=== PATIENT | female | born 1965 | race Caucasian/White ===

== ENCOUNTER 2021-06-29 14:57 | Inpatient (IN) | payer BC ==
[~2021-06-29] VITALS: Ht 167.6 cm; Wt 63.5 kg
[2021-06-29] MEDS ORDERED: MORPHINE SULFATE 4 MG/ML CPJ (NOT FOR IM USE) IV STA (15:01)
[2021-06-29] MEDS ORDERED: ONDANSETRON HCL 4MG/2ML INJ IV STA (15:01)
[2021-06-29] MEDS ORDERED: SODIUM CHLORIDE 0.9% 1,000 ML IV ONE (15:15)
[2021-06-29 15:42] LABS: CHLORIDE 105 mEq/L (98-107)
[2021-06-29 15:44] LABS: BASOPHILS % 0.6 % (0.0-2.0); EOSINOPHILS % 0.3 % (0.0-5.0); HEMATOCRIT. 41.5 % (36.0-48.0); HEMOGLOBIN. 14.1 g/dL (12.0-16.0); LYMPHOCYTES % 18.6 % (20.0-50.0); MEAN CORPUSCULAR HEMOGLOBIN 29.7 pg (28.0-32.0); MEAN CORPUSCULAR VOLUME 87.7 fL (81.0-99.0); MONOCYTES % 5.6 % (2.0-8.0); NEUTROPHILS % 74.9 % (40.0-76.0); PLATELET 226 x1000/uL (130-400); RED BLOOD CELL COUNT 4.73 mill/uL (4.2-5.4); RED CELL DISTRIBUTION WIDTH 13.4 % (11.6-14.6)
[2021-06-29 15:45] LABS: ETHANOL BLOOD < 10 mg/dL
[2021-06-29 15:49] LABS: CREATINE KINASE 472 IU/L (26-192)
[2021-06-29] MEDS ORDERED: FAMOTIDINE 20MG/2ML VIAL IV ONE (16:00)
[2021-06-29 16:09] LABS: INR 0.9
[2021-06-29 16:16] LABS: AMYLASE 50 IU/L (25-115)
[2021-06-29] MEDS ORDERED: MAGNESIUM/ALUMINUM HYDROXIDE/SIMETHICONE 30ML UDC PO PRN (18:45)
[2021-06-29] MEDS ORDERED: GUAIFENESIN 200MG/10ML SUGAR FREE UDC PO PRN (18:45)
[2021-06-29] MEDS ORDERED: IPRATROPIUM/ALBUTEROL 0.5-3(2.5)MG/3ML NEB NEB PRN (18:45)
[2021-06-29] MEDS ORDERED: NITROGLYCERIN 0.4MG TABLET SL SL PRN (18:45)
[2021-06-29] MEDS ORDERED: ACETAMINOPHEN 325MG TABLET PO PRN (18:45)
[2021-06-29] MEDS ORDERED: CLONIDINE 0.1MG TABLET PO PRN (18:45)
[2021-06-29] MEDS ORDERED: DOCUSATE SODIUM 100MG CAPSULE PO PRN (18:45)
[2021-06-29 19:14] LABS: CLARITY URINE CLEAR (CLEAR); COLOR URINE YELLOW (YELLOW); KETONES URINE 1+ (NEGATIVE); LEUKOCYTE ESTERASE URINE NEGATIVE (NEGATIVE); NITRITE URINE POSITIVE (NEGATIVE); OCCULT BLOOD URINE NEGATIVE (NEGATIVE); PROTEIN URINE NEGATIVE (NEGATIVE); SPECIFIC GRAVITY URINE 1.031 (1.005-1.030); UROBILINOGEN URINE 0.2 E.U./dL (0.2-1.0)
[2021-06-29] MEDS: ACETAMINOPHEN 325MG TABLET PO PRN (19:16)
[2021-06-29] MEDS: DEXT 5%/LACTATED RINGERS 1,000 ML IV SCH (19:21)
[2021-06-29 19:28] LABS: *AMPHETAMINES SCREEN URINE NEGATIVE (NEGATIVE); *BARBITURATES SCREEN URINE NEGATIVE (NEGATIVE); CANNABINOID URINE SCREEN NEGATIVE (NEGATIVE); METHADONE URINE SCREEN NEGATIVE (NEGATIVE)
[2021-06-29 19:29] LABS: *BENZODIAZEPINES SCREEN URINE NEGATIVE (NEGATIVE); *COCAINE SCREEN URINE NEGATIVE (NEGATIVE); OPIATES URINE SCREEN PRESUMTIVE POSITIVE (NEGATIVE); PHENCYCLIDINE URINE SCREEN NEGATIVE (NEGATIVE)
[2021-06-29] MEDS: ENOXAPARIN 40MG/0.4ML SYR SUBCUT SCH (20:08)
[2021-06-29 20:09] LABS: T4 FREE 1.33 ng/dL (0.76-1.46)
[2021-06-29 20:38] LABS: VITAMIN B12 SERUM 682 pg/mL (211-911)
[2021-06-29] MEDS: SUCRALFATE 1 G/10 ML UDC PO SCH (20:55)
[2021-06-29] MEDS ORDERED: IOHEXOL-300 100 ML BOTTLE ONE (20:57)
[2021-06-29] MEDS: KETOROLAC 15MG/ML VIAL IV PRN (20:59)
[2021-06-29] MEDS ORDERED: ZOLPIDEM TARTRATE 5MG TABLET PO PRN (21:00)
[2021-06-29 21:07] LABS: FOLIC ACID (FOLATE) SERUM > 20.00 ng/mL (>5.38)
[2021-06-29 23:07] LABS: CREATINE KINASE 286 IU/L (26-192)
[2021-06-29 23:09] LABS: CREATINE KINASE MB FRACTION 4.2 ng/mL (0.5-3.6)
[2021-06-29] MEDS: ONDANSETRON HCL 4MG/2ML INJ IV PRN (23:35)
[2021-06-30 04:50] LABS: BASOPHILS % 0.7 % (0.0-2.0); EOSINOPHILS % 0.3 % (0.0-5.0); HEMATOCRIT. 43.6 % (36.0-48.0); HEMOGLOBIN. 14.2 g/dL (12.0-16.0); LYMPHOCYTES % 22.9 % (20.0-50.0); MEAN CORPUSCULAR HEMOGLOBIN 28.7 pg (28.0-32.0); MEAN CORPUSCULAR VOLUME 88.1 fL (81.0-99.0); MEAN PLATELET VOLUME 8.8 fl (7.4-10.4); MONOCYTES % 9.2 % (2.0-8.0); NEUTROPHILS % 66.9 % (40.0-76.0); PLATELET 232 x1000/uL (130-400); RED BLOOD CELL COUNT 4.95 mill/uL (4.2-5.4); RED CELL DISTRIBUTION WIDTH 13.5 % (11.6-14.6)
[2021-06-30] MEDS: DEXT 5%/LACTATED RINGERS 1,000 ML IV SCH ×2 (04:59→13:41)
[2021-06-30] MEDS: ONDANSETRON HCL 4MG/2ML INJ IV PRN (04:59)
[2021-06-30] MEDS: KETOROLAC 15MG/ML VIAL IV PRN (04:59)
[2021-06-30 05:29] LABS: CHLORIDE 108 mEq/L (98-107)
[2021-06-30 05:41] LABS: CREATINE KINASE 193 IU/L (26-192)
[2021-06-30 05:43] LABS: CREATINE KINASE MB FRACTION 3.4 ng/mL (0.5-3.6)
[2021-06-30] MEDS: SUCRALFATE 1 G/10 ML UDC PO SCH ×4 (08:12→21:17)
[2021-06-30 09:10] VITALS: BP 93/69
[2021-06-30] MEDS: PANTOPRAZOLE SODIUM 40 MG/VIAL IV SCH (10:03)
[2021-06-30 12:00] VITALS: BP 118/72
[2021-06-30] MEDS ORDERED: LACTULOSE 20G/30ML UDC PO NR (14:00)
[2021-06-30 15:52] VITALS: BP 141/79
[2021-06-30 20:00] VITALS: BP 128/79
[2021-06-30] MEDS ORDERED: LACTULOSE 20G/30ML UDC PO PRN (21:00)
[2021-06-30] MEDS ORDERED: ATORVASTATIN CALCIUM 20MG TABLET PO SCH (21:00)
[2021-06-30] MEDS: ACETAMINOPHEN 325MG TABLET PO PRN (21:16)
[2021-06-30] MEDS: ENOXAPARIN 40MG/0.4ML SYR SUBCUT SCH (21:17)
[2021-07-01] VITALS: BP 97/52
[2021-07-01] MEDS: DEXT 5%/LACTATED RINGERS 1,000 ML IV SCH ×2 (01:23→09:10)
[2021-07-01 04:00] VITALS: BP 128/69
[2021-07-01] MEDS: SUCRALFATE 1 G/10 ML UDC PO SCH (06:14)
[2021-07-01] MEDS: ACETAMINOPHEN 325MG TABLET PO PRN (07:47)
[2021-07-01 08:00] VITALS: BP 129/84
[2021-07-01] MEDS: PANTOPRAZOLE SODIUM 40 MG/VIAL IV SCH (09:09)
[2021-07-01 10:32] VITALS: BP 129/84
== END 2021-07-01 12:15 | disposition home or self-care (01) | DRG 389 ==
LOC: ER 14:57 → EDBEDREQ 18:34 → MICUSO 18:41 → EDBEDREQ 19:00 → EDBEDREQTM 19:00 → 8WST 06-30 09:37
PROVIDERS: ADMIT Internal Medicine; ATTEND Internal Medicine
DX: K56.600 Partial intestinal obstruction, unspecified as to cause (principal); M62.82 Rhabdomyolysis; K56.7 Ileus, unspecified; I49.3 Ventricular premature depolarization; E78.5 Hyperlipidemia, unspecified; K86.89 Other specified diseases of pancreas; R00.8 Other abnormalities of heart beat; E86.0 Dehydration; Z20.822 Contact with and (suspected) exposure to COVID-19
CPT/HCPCS: 36415; 71045; 74177; 80053; 80061; 80305; 80320; 81003; 82150; 82550; 82553; 82607; 82746; 83036; 83540; 83550; 83735; 83880; 84100; 84145; 84439; 84443; 84484; 85025; 87426; 93005; 93306; 93970; 99291; C9113; J1650; J1885; J2270; J2405; J3490; J7030; Q9967; G0480